=== PATIENT | female | born 1995 | race Caucasian/White ===

== ENCOUNTER 2023-06-28 18:14 | Inpatient (IN) ==
[2023-06-28] MEDS ORDERED: Promethazine INJ(RESTRICTED) 25 MG/ML 1 ml VIAL IV PRN (19:13)
[2023-06-28] MEDS ORDERED: Nalbuphine 10 MG/ML 1 ML VIAL IV PRN (19:13)
[2023-06-28] MEDS ORDERED: Dinoprostone 10 MG VAG.SUPP VAGINAL ONE (19:13)
[2023-06-28] MEDS ORDERED: Buffered Lidocaine 1% SYRIN 1 ml INTRADERM ONE (19:13)
[2023-06-28] MEDS ORDERED: Lactated Ringers 1000 ml BAG 1,000 ML IV ONE (19:13)
[2023-06-28 20:11] LABS: Urine Benzodiazepine Screen None Detected (None Detect); Urine Cannabinoids Screen Presumptive Positive (None Detect); Urine Opiates Screen None Detected (None Detect)
[2023-06-29 08:39] LABS: ABS Basophils 0.1 10^3/uL (0.0-0.1); ABS Eosinophils 0.1 10^3/uL (0.0-0.5); ABS Lymphocytes 2.9 10^3/uL (1.0-4.8); ABS Monocytes 0.9 10^3/uL (0.0-0.9); ABS Neutrophils 10.9 10^3/uL (1.5-7.6); ABS Nucleated RBC 0.01 10^3/ul; Eosinophil % 0.8 %; Hematocrit 41.6 % (35-45); Hemoglobin 14.6 g/dL (11.5-14.3); Lymphocyte % 19.4 %; Mean Corpuscular Hemoglobin 31.7 pg (27-33); Mean Corpuscular Hgb Conc 35.1 g/dL (31-36); Mean Corpuscular Volume 90.3 fL (80-97); Mean Platelet Volume 9.4 fL (7.5-11.2); Nucleated Red Blood Cells % 0.1 /100 WBC (0.0-0.4); Platelet Count 240 10^3/uL (150-450); Red Blood Count 4.61 10^6/uL (3.63-4.92); Red Cell Distribution Width 13.4 % (12-17); White Blood Count 14.8 10^3/uL (3.8-11.8)
[2023-06-29] MEDS ORDERED: Oxytocin in LR 20,000 MILLI.UNIT/1,000 ML BAG IV SCH ×2 (10:15→23:10)
[2023-06-29] MEDS: Lactated Ringers 1000 ml BAG 1,000 ML IV SCH ×2 (10:38→16:24)
[2023-06-29] MEDS ORDERED: Morphine 10 MG/ML VIAL (1 ml) IM ONE (12:43)
[2023-06-29] MEDS ORDERED: Promethazine INJ(RESTRICTED) 25 MG/ML 1 ml VIAL IM ONE (13:07)
[2023-06-29] MEDS ORDERED: Metoclopramide 5 MG/ML VIAL (10 mg) IV PRN (17:24)
[2023-06-29] MEDS ORDERED: OBEPIDURAL (200 ML) 200 ML EPIDURAL ONE (19:49)
[2023-06-29] MEDS ORDERED: Lidocaine 1% w EPI 1:200,000 SDV 10 ML VIAL ONE (19:49)
[2023-06-29] MEDS ORDERED: fentaNYL 100 mcg/2 ml 50 MCG/ML VIAL ONE ×2 (20:07→23:07)
[2023-06-29] MEDS ORDERED: ceFOXitin 2 GM IVPREMIX 2 GM/50 ML BAG IVPB ONE (22:40)
[2023-06-29] MEDS ORDERED: Sodium Citrate/Citric Acid LIQ 15 ML UDC PO ONE (22:41)
[2023-06-29] MEDS ORDERED: Bupivacaine 0.5% SDV PF 30ML VIAL ONE (23:07)
[2023-06-29] MEDS ORDERED: Glycerin ADULT 2.4 gm SUPP PR PRN (23:10)
[2023-06-29] MEDS ORDERED: Witch Hazel PAD JAR TOPICAL PRN (23:10)
[2023-06-29] MEDS ORDERED: Dibucaine 1% OINT 28.35 GM TUBE PR PRN (23:10)
[2023-06-29] MEDS ORDERED: Oxytocin 10 UNITS/ML 1 ML VIAL ONE (23:30)
[2023-06-29] MEDS ORDERED: Ondansetron 4 mg VIAL 2 MG/ML 2 ml VIAL ONE (23:30)
[2023-06-29] MEDS ORDERED: Dexamethasone IV 4 MG/ML VIAL 1 ml VIAL ONE (23:30)
[2023-06-29] MEDS ORDERED: Morphine PF AMP (0.5MG/ML) 5 MG/10 ML AMP ONE (23:30)
[2023-06-29] MEDS ORDERED: Lactated Ringers 1000 ml BAG 1,000 ML IV SCH (23:45)
[2023-06-30] MEDS ORDERED: Phenylephrine 40 mcg/mL 10mL (400mcg) SYRINGE ONE (00:22)
[2023-06-30] MEDS ORDERED: Naloxone 0.4 mg VIAL 0.4 mg/ml 1 ml VIAL IV PUSH PRN (00:31)
[2023-06-30] MEDS ORDERED: Metoclopramide 5 MG/ML VIAL (10 mg) IV PRN (00:31)
[2023-06-30] MEDS ORDERED: Ondansetron 4 mg VIAL 2 MG/ML 2 ml VIAL IV PRN (00:31)
[2023-06-30] MEDS ORDERED: Acetaminophen IV 1 GM/100ML 1,000 MG/100 ML BAG IV PRN (00:31)
[2023-06-30 08:52] LABS: Hematocrit 38.5 % (35-45); Hemoglobin 13.3 g/dL (11.5-14.3); Mean Corpuscular Hemoglobin 31.3 pg (27-33); Mean Corpuscular Hgb Conc 34.5 g/dL (31-36); Mean Corpuscular Volume 90.6 fL (80-97); Mean Platelet Volume 9.2 fL (7.5-11.2); Platelet Count 229 10^3/uL (150-450); Red Blood Count 4.26 10^6/uL (3.63-4.92); Red Cell Distribution Width 13.7 % (12-17); White Blood Count 24.9 10^3/uL (3.8-11.8)
[2023-06-30 10:11] LABS: ABS Lymphocytes 0.9 10^3/uL (1.0-4.8); ABS Monocytes 0.6 10^3/uL (0.0-0.9); ABS Neutrophils 23.4 10^3/uL (1.5-7.6); Lymphocyte % 3.5 %
[2023-07-02 08:04] VITALS: BP 134/80
== END 2023-07-02 16:06 | disposition home or self-care (01) | DRG 540 ==
LOC: MCHOBOUT 18:14 → MCHOB 20:45
PROVIDERS: ADMIT Obstetrics & Gynecology; ATTEND Obstetrics & Gynecology